=== PATIENT | male | born 1955 | race Caucasian/White ===

== ENCOUNTER 2024-10-21 07:32 | Day surgery (SDC) | payer MEDICARE, OTHER ==
[2024-10-21] MEDS: Lactated Ringers 1,000 ML IV SCH (07:59)
[2024-10-21] MEDS ORDERED: Propofol 200 MG/20 ML SDV ONE ×3 (09:13→10:15)
[2024-10-21] MEDS ORDERED: fentaNYL 100 MCG/2 ML SDV ONE (09:13)
[2024-10-21 12:10] VITALS: BP 148/87; PULSE 62
== END 2024-10-21 12:30 | disposition home or self-care (01) ==
LOC: JP.SDS 07:32
PROVIDERS: ATTEND Surgery
DX: Z12.11 Encounter for screening for malignant neoplasm of colon (principal); D12.2 Benign neoplasm of ascending colon; D12.3 Benign neoplasm of transverse colon; D12.5 Benign neoplasm of sigmoid colon; K57.30 Diverticulosis of large intestine without perforation or abscess without bleeding; I10 Essential (primary) hypertension
CPT/HCPCS: J2704; J3010; J7120